=== PATIENT | female | born 1955 | race Caucasian/White ===

== ENCOUNTER → 2022-09-17 14:00 | Outpatient (CLI) | payer OTHER, SELFPAY ==
--- NOTE | 2022-09-17 | DI.ECHO.S_ITS ---
[place] [facility]---------+ [facility] +---------+ : : [address] : [address] : : : : [id number] : : : : Phone: [phone]+ Echocardiogram Report + + :Name: LISA SCHERER Study Date: 09/17/2022 Height: 67 in : :[facility] ReadingLocation: Weight: 140 lb : : Gender: Female BSA: 1.7 m2 : :: 1955 Age: 67 yrs BP: 109/66 mmHg: :Reason For Study: CARDIOMYPATHIES : :Ordering Physician: MELONY, : :PIYUSH Performed By: Michelle Ramirez : :Referring: PIYUSH TY : + + Interpretation Summary Normal sinus rhythm. Normal LV size and wall thickness. Basal inferior, basal inferior lateral, mid inferior lateral severe hypokinesis; otherwise mild hypokinesis. EF is 40-45%. No significant valvular abnormalities. Severe left atrial enlargement. Otherwise normal chamber sizes. Compared to prior study 08/27/2021 LV is more dynamic, but EF has not completely normalized. EF is up from 20-25% to 40-45%. Procedure: A two-dimensional transthoracic echocardiogram with color flow and Doppler was performed. The study quality was technically adequate. Comparison is made with the echocardiogram of 11/30/2021. The patient was in sinus bradycardia with heart rates between 59-63 bpm during the exam. Left Ventricle: The left ventricle is normal in size and wall thickness. The ejection fraction is estimated to be 40-45%. Right Ventricle: The right ventricle is normal in size and function. Atria: The left atrium is severely dilated. Right atrial size is normal. There is no Doppler evidence for an interatrial shunt. Mitral Valve: There is mild mitral annular calcification. The mitral valve leaflets appear borderline thickened, but open well. There is mild mitral regurgitation. Aortic Valve: The aortic valve is trileaflet. The aortic valve opens well. There is no aortic valve stenosis. No aortic regurgitation is present. Tricuspid Valve: The tricuspid valve is normal in structure and function. There is mild tricuspid regurgitation. Pulmonic Valve: The pulmonic valve is not well seen, but is grossly normal. There is no pulmonic valvular regurgitation. Great Vessels: The aortic root is normal size. The ascending aorta could not be visualized. The IVC is of normal diameter and collapses less than 50% with a sniff. This suggests a right atrial pressure of 8 mm Hg. Pericardium/ Pleura There is no pericardial effusion. There is no pleural effusion. MMode/2D Measurements & Calculations LVIDd: 5.3 cm LVOT diam: 2.3 cm LVIDs: 4.1 cm Ao root diam: 2.9 cm FS: 22.5 % Ao Arch Diam (Prox Trans): 2.8 cm EPSS: 1.6 cm IVSd: 0.98 cm LVPWd: 0.99 cm LV feldman. diameter/BSA (cm/m^2): 3.0 LV sys. diameter/BSA (cm/m^2): 2.3 LA A2 area: 25.5 cm2 RA long axis: 4.7 cm LA A4 area: 18.3 cm2 RA area: 16.0 cm2 LA length (vol): 4.8 cm RA vol: 46.0 ml LA vol: 83.1 ml RA : 26.5 ml/m2 LA vol index: 47.8 ml/m2 IVC diam: 1.7 cm RVD1 (basal): 3.8 cm TAPSE: 1.9 cm Doppler Measurements & Calculations Ao V2 max: 146.5 cm/sec LVOT Max Joao: 80.1 cm/sec Ao V2 mean: 109.7 cm/sec LV V1 max P.6 mmHg Ao max P.6 mmHg LV V1 VTI: 17.2 cm Ao mean P.2 mmHg ALISHA(I,D): 2.4 cm2 Ao V2 VTI: 30.5 cm ALISHA(V,D): 2.3 cm2 sev ratio: 0.56 ALISHA indexed to BSA (cm^2/m^2): 1.4 MV E max joao: 60.8 cm/sec PA V2 max: 83.4 cm/sec MV A max joao: 86.3 cm/sec PA V2 mean: 56.8 cm/sec MV E/A: 0.70 PA mean P.5 mmHg Med Peak E' Joao: 3.9 cm/sec PA pr(Accel): 39.6 mmHg E/E' med: 15.5 Lat Peak E' Joao: 2.8 cm/sec E/E' lat: 21.8 E/e' average: 18.7 MV dec time: 0.27 sec SV(OT): 73.1 ml Electronically signed by: Piyush Ty M.D. on Reading Physician:09/24/2022 09:03 AM
== END ==
PROVIDERS: PCP Internal Medicine; Referring Provider Internal Medicine; Visit Provider Internal Medicine
DX: I42.8 Other cardiomyopathies (principal); I08.1 Rheumatic disorders of both mitral and tricuspid valves
CPT/HCPCS: 93306